=== PATIENT | male | born 1945 | race American Indian/Alaskan Native ===

== ENCOUNTER 2021-09-18 10:11 | Outpatient (CLI) | payer MEDICARE, OTHER ==
--- NOTE | 2021-09-18 11:01 | Cat Scan Report ---
CT OF THE ABDOMEN AND PELVIS WITHOUT CONTRAST INDICATION / CLINICAL INFORMATION: Microscopic hematuria. TECHNIQUE: All CT scans at this location are performed using CT dose reduction for ALARA by means of automated exposure control. COMPARISON: None available. FINDINGS: ABDOMEN: There are severe atherosclerotic calcifications involving the abdominal aorta and its branch es. Calcifications in both renal gunjan are probably renovascular. No renal parenchymal calcification i s present. There is a 1.3 cm simple cyst-appearing lesion in the upper pole left kidney medially. The re is no evidence of a solid renal mass, hydronephrosis or perinephric soft tissue stranding. There is a 4 cm lesion in the medial segment of the left lobe of the liver which measures blood pool density. The gallbladder, bile ducts, pancreas, spleen, and adrenal glands demonstrate no significant abnormality. No adenopathy is seen. There is a partial colectomy. I see no evidence of bowel obstruc tion, wall thickening or free air. The lung bases are clear. PELVIS: The prostate gland is mildly enlarged. The distal ureters, urinary bladder and seminal vesicl es are normal. A normal appendix is present and there is no evidence of diverticulitis. No abnormal m ass or fluid collection is seen. I do not identify a hernia. There is moderate spondylosis. IMPRESSION: 1. No cause for microscopic hematuria is seen. 2. Incidental 4 cm blood pool density mass in the left lobe of the liver is nonspecific, but may just represent a cavernous hemangioma. Unless old studies are available for comparison, multiphase MRI or CT may be helpful in further characterization. Signer Name: Amrik Parada MD Signed: 09/18/2021 10:56 AM Workstation Name: [id number]
== END 2021-09-18 10:12 | disposition home or self-care (01) ==
LOC: CT 10:11
PROVIDERS: ATTEND Urology
DX: N40.0 Benign prostatic hyperplasia without lower urinary tract symptoms (principal); I70.0 Atherosclerosis of aorta; K76.89 Other specified diseases of liver; M47.819 Spondylosis without myelopathy or radiculopathy, site unspecified
CPT/HCPCS: 74176